=== PATIENT | female | born 1975 | race American Indian/Alaskan Native ===

== ENCOUNTER 2017-03-26 03:18 | Emergency (ER) | payer MEDICAID ==
--- NOTE | 2017-03-26 03:28 | EDPHY ---
H & P HPI/ROS: HPI CHIEF COMPLAINT: Alcohol intoxication, fall off skateboard, facial trauma HISTORY OF PRESENT ILLNESS: The patient 41-year-old female she denies having significant medical history she presents emergency room by EMS in a cervical collar she is alert and orient x4, GCS 15, she presents after she fell off her skateboard she got intoxicated with multiple liquor beverages this evening she fell off a skateboard landing on her face. She has a chin laceration and states that she has anterior facial pain. No neck pain no headache. Of note upon arrival to the emergency room smells of alcohol she is slurring her speech she is intoxicated. Past Medical History: Denies any medical history Past Surgical History: Denies any surgical history Social History: Occasional alcohol use, smokes marijuana and tobacco denies illicit drugs Family History: Noncontributory ROS REVIEW OF SYSTEMS: A comprehensive 10 point review of systems is otherwise negative aside from elements mentioned in the history of present illness. Exam Constitutional intoxicated, smells of alcohol triage nursing summary reviewed, vital signs reviewed, awake/alert. Eyes normal conjunctivae and sclera, EOMI, PERRLA. HENT head/neck/face: There is a horizontally oriented 4 cm chin laceration present, midface stable, no crepitus, however tender palpation over the both maxillary region, no malocclusion with bite however patient claims that some of her teeth are missing however on oropharynx exam there is no blood in her mouth and she has bad dentition with multiple fractured teeth, unclear which is acute or old, moist mucus membranes, no epistaxis, neck supple/ no meningismus, no raccoon eyes. Respiratory clear to auscultation bilaterally, normal breath sounds, no respiratory distress, no wheezing. Cardiovascular rate normal, regular rhythm, no murmur, no edema, distal pulses normal. Gastrointestinal soft, non-tender, no rebound, no guarding, normal bowel sounds, no distension, no pulsatile mass. Genitourinary no CVA tenderness. Musculoskeletal no midline vertebral tenderness, full range of motion, no calf swelling, no tenderness of extremities, no meningismus, good pulses, neurovascularly intact. Skin pink, warm, & dry, no rash, skin atraumatic. Neurologic awake, alert and oriented x 3, AAOx3, moves all 4 extremities equally, motor intact, sensory intact, CN II-XII intact, normal cerebellar, normal vision, slurring her speech consistent with alcohol intoxication Psychiatric normal mood/affect. Heme/Lymph/Immune no lymphadenopathy. Differential Diagnosis: Includes but is not limited to in a particular order: Acute alcohol intoxication, , facial trauma, facial fracture, closed head injury , intracranial bleed, cervical spine injury Medical Decision Making: Plan for this patient alcohol blood draw, CT of the head for trauma CT of the cervical spine for trauma, CT of the face for trauma Re-evaluation: CT scan of the head without IV contrast The results of the study are negative for acute traumatic injury The study was read by Dr. Rice I viewed the images myself on the PACS system. CT scan of the cervical spine without IV contrast for trauma. The results of the study are negative for acute traumatic injury The study was read by Dr. rice. [I viewed the images myself on the PACS system. CT scan of the maxillofacial. The results of the study are bilateral mandibular condyle fractures The study was read by Dr. rice. I viewed the images myself on the PACS system. ED x-ray chest one view: Negative for acute cardiopulmonary disease specifically no visible trauma or foreign body seen. 0447AM: Patient is sleeping at this time. She removed her cervical collar herself. Chin laceration needs to be repaired. She also has bilateral mandibular condyle fractures that I need to consult oral maxillofacial surgery. 0538AM: Laceration Repair Procedure: Verbal Consent was obtained, Under sterile conditions, The patient had lidocaine with epinephrine used approximately 5ccs to local anesthetize the 4cm chin Laceration. The wound was copiously irrigated with sterile fluid, the wound was explored for foreign bodies there were none visualized, the wound was explored with a sterile glove to the base. There are no deep structures involved, including no arterial injury. Three 5.0 Prolene interrupted Sutures were placed in this patient's laceration. She had good close approximation of the wound edges. She Tolerated this well. 0557AM: Patient is sleeping here resting comfortably. Her chin laceration has been repaired by myself under sterile condition she tolerated this well. Her CT scans and x-rays have been reviewed. Her CT scan shows bilateral mandibular condyle fractures. Will touch base with oral maxillofacial surgery for further management of this. 0709: Spoke with Dr. Londono with [facility]. He has accepted patient to Er. 0709: Spoke With Dr. Aguirre, who has accepted this patient to [facility]. I did update this patient about this at 7:30 a.m.. She is agreeable for transfer. Emtala form filled out. Reason for transfer bilateral mandibular condyle fractures. Reason this patient be transferred is bilateral mandibular condyle fractures and at this time I do not have oral maxillofacial surgery available for this patient. The patient has no other traumatic injuries except a chin laceration. I do not feel that she needs Trauma Service consult here in the emergency room should be transferred to [facility] where oral maxillofacial surgery has agreed to see her in the ER. Transfer ER to ER. Source: Patient, EMS - Personal History Tetanus Vaccine Date: 2012 - Medical/Surgical History Hx Asthma: No Hx Chronic Respiratory Disease: No Hx Diabetes: No Hx Cardiac Disease: No Hx Renal Disease: No Hx Cirrhosis: No Hx Alcoholism: Yes Hx HIV/AIDS: No Hx Splenectomy or Spleen Trauma: No Other PMH: kidney infections, staph infections, ETOH ABUSE. , drug abuse, Hep C - Social History Smoking Status: Current every day smoker Constitutional: Initial Vital Signs Temperature (C) 36.9 C 03/26/17 03:32 Heart Rate 82 03/26/17 03:32 Respiratory Rate 18 03/26/17 03:32 Blood Pressure 138/89 H 03/26/17 03:32 O2 Sat (%) 100 03/26/17 03:32 O2 Delivery Mode Room Air Allergies/Adverse Reactions: procaine HCl [From Novocain] Allergy (Verified 03/26/17 03:33) Home Medications: Medication Instructions Recorded NK [No Known Home Meds] 03/26/17 Medical Decision Making - Data Points Laboratory Results: Laboratory Results 03/26/17 03:30 03/26/17 03:30 03/26/17 03/26/17 03:30 03:30 WBC 7.36 10^3/uL 10^3/uL (3.80-9.50) RBC 4.35 10^6/uL 10^6/uL (4.18-5.33) Hgb 12.2 g/dL L g/dL (12.6-16.3) Hct 38.3 % % (38.0-47.0) MCV 88.0 fL fL (81.5-99.8) MCH 28.0 pg pg (27.9-34.1) MCHC 31.9 g/dL L g/dL (32.4-36.7) RDW 18.2 % H % (11.5-15.2) Plt Count 523 10^3/uL H 10^3/uL (150-400) MPV 9.1 fL fL (8.7-11.7) Neut % (Auto) 55.5 % % (39.3-74.2) Lymph % (Auto) 31.8 % % (15.0-45.0) [place] % (Auto) 9.8 % % (4.5-13.0) Eos % (Auto) 1.4 % % (0.6-7.6) Baso % (Auto) 1.4 % % (0.3-1.7) Nucleat RBC Rel Count 0.0 % % (0.0-0.2) Absolute Neuts (auto) 4.09 10^3/uL 10^3/uL (1.70-6.50) Absolute Lymphs (auto) 2.34 10^3/uL 10^3/uL (1.00-3.00) Absolute Monos (auto) 0.72 10^3/uL 10^3/uL (0.30-0.80) Absolute Eos (auto) 0.10 10^3/uL 10^3/uL (0.03-0.40) Absolute Basos (auto) 0.10 10^3/uL 10^3/uL (0.02-0.10) Absolute Nucleated RBC 0.00 10^3/uL 10^3/uL (0-0.01) Immature Gran % 0.1 % % (0.0-1.1) Immature Gran # 0.01 10^3/uL 10^3/uL (0.00-0.10) Sodium 145 mEq/L H mEq/L (134-144) Potassium 4.4 mEq/L mEq/L (3.5-5.2) Chloride 109 mEq/L mEq/L (97-110) Carbon Dioxide 24 mEq/l mEq/l (22-31) Anion Gap 12 mEq/L mEq/L (8-16) BUN 12 mg/dL mg/dL (7-23) Creatinine 0.8 mg/dL mg/dL (0.6-1.0) Estimated GFR > 60 Glucose 100 mg/dL mg/dL (70-100) Calcium 9.2 mg/dL mg/dL (8.5-10.4) Ethyl Alcohol 214 mg/dL H mg/dL (0-10) Departure - Departure Disposition: [facility] Clinical Impression: Elevated ETOH level Qualifiers: Blood alcohol level: 200-239 mg/100 ml Qualified Code(s): Y90.7 - Blood alcohol level of 200-239 mg/100 ml Mandibular body fracture Qualifiers: Encounter type: initial encounter Fracture type: closed Laterality: unspecified laterality Qualified Code(s): S02.600A - Fracture of unspecified part of body of mandible, unspecified side, initial encounter for closed fracture Facial laceration Qualifiers: Encounter type: initial encounter Qualified Code(s): S01.81XA - Laceration without foreign body of other part of head, initial encounter Condition: Fair Instructions: Care For Your Stitches (ED), Laceration (ED), Jaw Fracture in Adults (ED), Alcohol Intoxication (ED) Referrals: NONE *PRIMARY CARE P,. [Primary Care Provider] - As per Instructions
[2017-03-26 03:44] LABS: % IMMATURE GRANULYOCYTES 0.1 % (0.0-1.1); ABSOLUTE IMMATURE GRANULOCYTES 0.01 10^3/uL (0.00-0.10); ADD DIFF? NO; ADD MORPH? NO; ADD SCAN? NO; ATYPICAL LYMPHOCYTE FLAG 10 (0-99); FRAGMENT RBC FLAG 10 (0-99); HEMATOCRIT 38.3 % (38.0-47.0); HEMOGLOBIN 12.2 g/dL (12.6-16.3); LEFT SHIFT FLG 0 (0-99); LIPEMIA HEMOLYSIS FLAG 80 (0-99); MEAN CELL HEMOGLOBIN CONCENTR. 31.9 g/dL (32.4-36.7); MEAN PLATELET VOLUME 9.1 fL (8.7-11.7); PLATELET CLUMPS FLAG 0 (0-99); PLATELET COUNT 523 10^3/uL (150-400); RED BLOOD CELL COUNT 4.35 10^6/uL (4.18-5.33); RED CELL DISTRIBUTION WIDTH 18.2 % (11.5-15.2)
[2017-03-26 03:53] LABS: ANION GAP 12 mEq/L (8-16); CALCIUM 9.2 mg/dL (8.5-10.4); CARBON DIOXIDE 24 mEq/l (22-31); CHLORIDE 109 mEq/L (97-110); CREATININE 0.8 mg/dL (0.6-1.0); ETHANOL SERUM 214 mg/dL (0-10); GLOMERULAR FILTRATION RATE > 60; GLUCOSE 100 mg/dL (70-100); POTASSIUM 4.4 mEq/L (3.5-5.2); SODIUM 145 mEq/L (134-144)
[2017-03-26 06:56] VITALS: RESP 16
[2017-03-26] MEDS ORDERED: fentaNYL 100 MCG/2 ML INJ IVP ONE (07:41)
[2017-03-26 07:55] VITALS: BP 122/76; PULSE 65; TEMP 97.9; O2SAT 98
== END 2017-03-26 08:36 | disposition short-term general hospital (02) ==
LOC: EDUNIT#
PROC: 0HQ1XZZ Repair Face Skin, External Approach (ICD-10-PCS; principal; 2017-03-26)
DX: S02.600A Fracture of unspecified part of body of mandible, unspecified side, initial encounter for closed fracture (principal); S01.81XA Laceration without foreign body of other part of head, initial encounter; Y90.7 Blood alcohol level of 200-239 mg/100 ml; F17.200 Nicotine dependence, unspecified, uncomplicated; V00.131A Fall from skateboard, initial encounter; Y99.8 Other external cause status; Y93.51 Activity, roller skating (inline) and skateboarding
CPT/HCPCS: 96374; G0480; J3010

== ENCOUNTER 2017-05-13 20:29 | Emergency (ER) | payer MEDICAID ==
--- NOTE | 2017-05-13 20:38 | EDPHY ---
H & P HPI/ROS: HPI CHIEF COMPLAINT: Alcohol intoxication, medical [facility] HISTORY OF PRESENT ILLNESS: this patient is a 41-year-old female, presents to the emergency room by [facility]. Patient intoxicated. EMS make contact with her after she was yelling at people outside. She is visibly intoxicated. She refused to cooperate with EMS exam getting vitals. So she is brought in handcuffs to the emergency room. Upon arrival here in the emergency room she is yelling. she is intoxicated. However is cooperating with exam. She denies any congestion. Denies trauma. States she drank a large amount of alcohol this evening. She is able to ambulate with a steady gait. Past Medical History: Daily alcohol use Past Surgical History: no recent surgery Social History: homeless, daily alcohol use Family History: noncontributory ROS REVIEW OF SYSTEMS: A comprehensive 10 point review of systems is otherwise negative aside from elements mentioned in the history of present illness. Exam Constitutional intoxicated alcohol triage nursing summary reviewed, vital signs reviewed, awake/alert. Eyes normal conjunctivae and sclera, EOMI, PERRLA. HENT normal inspection, atraumatic, moist mucus membranes, no epistaxis, neck supple/ no meningismus, no raccoon eyes. Respiratory clear to auscultation bilaterally, normal breath sounds, no respiratory distress, no wheezing. Cardiovascular rate normal, regular rhythm, no murmur, no edema, distal pulses normal. Gastrointestinal soft, non-tender, no rebound, no guarding, normal bowel sounds, no distension, no pulsatile mass. Genitourinary no CVA tenderness. Musculoskeletal no midline vertebral tenderness, full range of motion, no calf swelling, no tenderness of extremities, no meningismus, good pulses, neurovascularly intact. Skin pink, warm, & dry, no rash, skin atraumatic. Neurologic awake, alert and oriented x 3, AAOx3, moves all 4 extremities equally, motor intact, sensory intact, CN II-XII intact, normal cerebellar, normal vision, intoxicated with alcohol slurring of the speech however normal gait Psychiatric normal mood/affect. Heme/Lymph/Immune no lymphadenopathy. Differential Diagnosis: includes but is not limited to in a particular order acute alcohol intoxication Medical Decision Making: plan for this patient medical clearance [facility]. patient ambulated throughout the emergency room without any difficulty. No ataxia. Will be discharged with [facility] Source: Patient, Police, EMS - Personal History Tetanus Vaccine Date: 2012 - Medical/Surgical History Hx Asthma: No Hx Chronic Respiratory Disease: No Hx Diabetes: No Hx Cardiac Disease: No Hx Renal Disease: No Hx Cirrhosis: No Hx Alcoholism: Yes Hx HIV/AIDS: No Hx Splenectomy or Spleen Trauma: No Other PMH: kidney infections, staph infections, ETOH ABUSE. , drug abuse, Hep C - Social History Smoking Status: Current every day smoker Allergies/Adverse Reactions: procaine HCl [From Novocain] Allergy (Verified 03/26/17 03:33) Home Medications: Medication Instructions Recorded NK [No Known Home Meds] 03/26/17 Departure - Departure Disposition: Home, Routine, Self-Care Clinical Impression: Alcoholic intoxication Qualifiers: Complication of substance-induced condition: uncomplicated Qualified Code(s): F10.920 - Alcohol use, unspecified with intoxication, uncomplicated Condition: Good Instructions: Alcohol Intoxication (ED) Referrals: Patient,NotPresent [Primary Care Provider] - As per Instructions
[2017-05-13 20:42] VITALS: BP 107/85; PULSE 92; RESP 16; TEMP 97.9; O2SAT 98
[2017-05-14] MEDS ORDERED: CHLORDIAZEPOXIDE 25MG PREPK#6 BTL TAKEHOME ONE ×2 (02:36→02:40)
== END 2017-05-13 20:42 | disposition home or self-care (01) ==
LOC: EDUNIT#
DX: F10.920 Alcohol use, unspecified with intoxication, uncomplicated (principal); F17.200 Nicotine dependence, unspecified, uncomplicated

== ENCOUNTER 2017-05-25 19:57 | Emergency (ER) | payer MEDICAID ==
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
[2017-05-25] MEDS ORDERED: NS 1,000 ML IV ONE (20:09)
[2017-05-25] MEDS ORDERED: CHLORDIAZEPOXIDE 25MG PREPK#6 BTL TAKEHOME ONE ×2 (20:29→20:31)
[2017-05-25 20:30] LABS: % IMMATURE GRANULYOCYTES 0.4 % (0.0-1.1); ABSOLUTE IMMATURE GRANULOCYTES 0.03 10^3/uL (0.00-0.10); ADD DIFF? NO; ADD MORPH? NO; ADD SCAN? NO; ANION GAP 15 mEq/L (8-16); ATYPICAL LYMPHOCYTE FLAG 10 (0-99); CALCIUM 9.8 mg/dL (8.5-10.4); CARBON DIOXIDE 19 mEq/l (22-31); CHLORIDE 112 mEq/L (97-110); CREATININE 0.8 mg/dL (0.6-1.0); FRAGMENT RBC FLAG 0 (0-99); GLOMERULAR FILTRATION RATE > 60; GLUCOSE 89 mg/dL (70-100); HEMATOCRIT 37.2 % (38.0-47.0); HEMOGLOBIN 12.3 g/dL (12.6-16.3); LEFT SHIFT FLG 0 (0-99); LIPEMIA HEMOLYSIS FLAG 80 (0-99); MEAN CELL HEMOGLOBIN 28.9 pg (27.9-34.1); MEAN CELL HEMOGLOBIN CONCENTR. 33.1 g/dL (32.4-36.7); MEAN CELL VOLUME 87.3 fL (81.5-99.8); MEAN PLATELET VOLUME 8.9 fL (8.7-11.7); PLATELET CLUMPS FLAG 10 (0-99); PLATELET COUNT 440 10^3/uL (150-400); POTASSIUM 4.2 mEq/L (3.5-5.2); RED BLOOD CELL COUNT 4.26 10^6/uL (4.18-5.33); RED CELL DISTRIBUTION WIDTH 16.7 % (11.5-15.2); SODIUM 146 mEq/L (134-144)
[2017-05-25 20:46] LABS: ETHANOL SERUM 439 mg/dL (0-10)
[2017-05-25 20:50] VITALS: BP 111/70; PULSE 91; RESP 14; TEMP 97.9; O2SAT 93
== END 2017-05-25 20:44 | disposition home or self-care (01) ==
LOC: EDUNIT#
DX: F10.120 Alcohol abuse with intoxication, uncomplicated (principal)
CPT/HCPCS: G0480

== ENCOUNTER 2018-02-16 14:13 | Emergency (ER) | payer MEDICAID ==
[2018-02-16] MEDS ORDERED: SKIN ADHESIVE (DERMABOND) 1 EACH TP ONE (14:24)
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
[2018-02-16 16:15] VITALS: BP 131/96
== END 2018-02-16 16:14 | disposition home or self-care (01) ==
LOC: EDUNIT#
PROC: 0HQ1XZZ Repair Face Skin, External Approach (ICD-10-PCS; principal; 2018-02-16)
DX: S09.90XA Unspecified injury of head, initial encounter (principal); S01.81XA Laceration without foreign body of other part of head, initial encounter; F17.200 Nicotine dependence, unspecified, uncomplicated; W01.198A Fall on same level from slipping, tripping and stumbling with subsequent striking against other object, initial encounter

== ENCOUNTER 2018-09-24 15:30 | Emergency (ER) | payer MEDICAID ==
[~2018-09-24 15:30] MED LIST: AZITHROMYCIN 250 MG TAB PO SCH
--- NOTE | 2018-09-24 15:58 | EDPHY ---
H & P Time Seen by Provider: 09/24/18 15:40 HPI/ROS: HPI Cough. 42-year-old female on foot with significant other. Patient reports that she has had a cough, at times productive of a green sputum, for the last week. She also describes having nasal congestion is a and some muscle aches and joint aches. She has a history of alcohol abuse. Last drink was around 1:00 p.m.. She is living on the streets. She denies fever. ROS: Constitutional: As above. No weakness. Eyes: No discharge. No changes in vision. ENT: No sore throat. No nasal congestion or rhinorrhea. Respiratory: As above. No shortness of breath. Cardiac: No chest pain, no palpitations. Gastrointestinal: No abdominal pain, no vomiting, no diarrhea. Genitourinary: No hematuria. No dysuria or increased frequency with urination. Musculoskeletal: No back pain. No neck pain. As above. Skin: No rashes. Neurological: No headache. No focal weakness or altered sensation. Past medical history: Kidney infections, staph infections, alcohol and drug abuse, hepatitis-C. Social history: Living on the streets. Alcohol and drug abuse, here with boyfriend. She is a smoker. Physical Exam: General Appearance: Alert, no distress. This patient is responding to questions appropriately and in full sentences. This patient appears well- hydrated and well-nourished. Eyes: Pupils equal and round no pallor or injection. No lid edema, erythema or injection. ENT, Mouth: Mucous membranes are moist. The pharyngeal tissues are unremarkable. No edema or swelling. No asymmetry suggestive of abscess. No erythema or exudates. No cervical, submandibular, submental lymphadenopathy. Respiratory: There are no retractions, lungs are clear to auscultation with good air movement bilaterally. No tachypnea Cardiovascular: Regular rate and rhythm. No murmur. Neurological: Motor sensory function is grossly intact. Cranial nerves are normal. Gait is normal. Skin: Warm and dry, no rashes. Musculoskeletal: Neck is supple and nontender. No pain on flexion of her neck. Extremities are symmetrical. All joints range without pain or impingement. Psychiatric: No agitation. No depression. Database: EKG: Imaging: Chest x-ray PA and lateral; the cardiac mediastinal silhouette is unremarkable. No evidence of infiltrate or pneumothorax. Mild airway disease suggestive of bronchitis. No acute cardiopulmonary disease process noted. Interpreted by me. Procedures: Emergency department course: Triage vital signs reviewed. She is mildly tachycardic. Triage vital signs are otherwise normal. She is afebrile in the emergency department. She was sent for chest x-ray as above. She was given Tessalon Perle for cough. 4:00 p.m., patient re-evaluated. Results of x-ray discussed with her. Plan will be to treat her with Tessalon Perle for her cough and prescribe her azithromycin for possible early pneumonia. These medicines will be filled by the assistance program. I will have her follow up with [facility] for re- evaluation on Tuesday or Tuesday of this week. She feels comfortable being discharged. Return to emergency department precautions reviewed with her. She understands for follow-up. All of her questions were answered. She was discharged from the emergency department in good condition. Differential Diagnosis: The differential diagnosis on this patient includes but is not limited to bronchitis, early pneumonia. This represents a partial list of diagnoses considered. These considerations are based on history, physical exam, past history, reassessment and diagnostic testing. Smoking Status: Current every day smoker Constitutional: Initial Vital Signs Temperature (C) 37.2 C 09/24/18 15:33 Heart Rate 109 H 09/24/18 15:33 Respiratory Rate 16 09/24/18 15:33 Blood Pressure 132/87 H 09/24/18 15:33 O2 Sat (%) 91 L 09/24/18 15:33 O2 Delivery Mode Room Air Allergies/Adverse Reactions: procaine HCl [From Novocain] Allergy (Verified 09/24/18 15:33) Home Medications: Medication Instructions Recorded Azithromycin [Zithromax] 250 mg PO DAILY #6 tab 09/24/18 Benzonatate [Tessalon Pearles] 100 mg PO TID #12 cap 09/24/18 Departure - Departure Disposition: Home, Routine, Self-Care Clinical Impression: Acute bronchitis Condition: Good Instructions: Acute Bronchitis (ED) Additional Instructions: Read and follow provided instructions. Follow-up with your primary care physician in 1-2 days for re-evaluation. Take medication as prescribed. Return to the emergency department for worsening symptoms or other serious concerns. Referrals: [facility],. [Clinic] - As per Instructions Prescriptions: Azithromycin [Zithromax] 250 mg PO DAILY #6 tab Benzonatate [Tessalon Pearles] 100 mg PO TID #12 cap
[2018-09-24 16:33] VITALS: BP 136/76
== END 2018-09-24 16:32 | disposition home or self-care (01) ==
DX: J20.9 Acute bronchitis, unspecified (principal)

== ENCOUNTER 2018-10-12 15:03 | Emergency (ER) | payer MEDICAID ==
[2018-10-12 15:07] VITALS: BP 125/100
--- NOTE | 2018-10-12 15:30 | EDPHY ---
H & P Time Seen by Provider: 10/12/18 15:19 HPI/ROS: CHIEF COMPLAINT: Right hand laceration HISTORY OF PRESENT ILLNESS: 42-year-old female presents with a right hand laceration. She accidentally cut her hand on a broken beer bottle just prior to arrival. Immediate onset of moderate bleeding, now stopped. Mild pain currently. No numbness or weakness. Tetanus is up-to-date. ROS: No numbness, weakness, excessive bleeding, syncopal episode, other injury. Smoking Status: Current every day smoker Physical Exam: Alert and oriented, pleasant Extremities: Right hand -1 cm laceration on the palm, no active bleeding Neuro: Motor intact to active resistance of the fingers and sensory intact to light touch Vascular: Capillary refill brisk distally Constitutional: Initial Vital Signs Temperature (C) 37 C 10/12/18 15:06 Heart Rate 140 H 10/12/18 15:06 Respiratory Rate 16 10/12/18 15:06 Blood Pressure 125/100 H 10/12/18 15:06 O2 Sat (%) 93 10/12/18 15:06 O2 Delivery Mode Room Air Allergies/Adverse Reactions: procaine HCl [From Novocain] Allergy (Verified 10/12/18 15:05) Medical Decision Making Procedures: Procedure: Laceration repair. The 1 cm laceration on the palm was anesthetized using lidocaine. The wound was irrigated, draped and explored to its base with a gloved finger. There were no deep structures involved. No foreign body palpable. The wound was repaired with 5 0 nylon. The wound repair was simple. Departure - Departure Disposition: Home, Routine, Self-Care Clinical Impression: Laceration of right hand Qualifiers: Encounter type: initial encounter Foreign body presence: without foreign body Qualified Code(s): S61.411A - Laceration without foreign body of right hand, initial encounter Condition: Good Instructions: Laceration (ED) Additional Instructions: Return for suture removal in 10 days. Referrals: [facility],. [Clinic] - As per Instructions
== END 2018-10-12 16:00 | disposition home or self-care (01) ==
PROC: 0HQFXZZ Repair Right Hand Skin, External Approach (ICD-10-PCS; principal; 2018-10-12)
DX: S61.411A Laceration without foreign body of right hand, initial encounter (principal); W25.XXXA Contact with sharp glass, initial encounter; F17.200 Nicotine dependence, unspecified, uncomplicated

== ENCOUNTER 2019-03-13 13:45 | Emergency (ER) | payer MEDICAID ==
[2019-03-13] MEDS: FAMOTIDINE 20 MG/NACL 50 ML IV ONE (14:31)
[2019-03-13] MEDS: ONDANSETRON 4 MG/2 ML VIAL IVP ONE (14:31)
[2019-03-13] MEDS: DIAZEPAM 10 MG/2 ML SYR IVP ONE (14:31)
[2019-03-13] MEDS: NS 1,000 ML IV ONE (14:31)
--- NOTE | 2019-03-13 14:42 | EDPHY ---
H & P Smoking Status: Current some day smoker Time Seen by Provider: 03/13/19 14:06 HPI/ROS: HPI Vomiting, alcohol abuse, cough. 43-year-old female on foot. She is with her friends. Chronic homeless. History of alcohol abuse. Frequent visitor to our emergency department. Presents with complaint of nausea and vomiting for about the last 24 hr. She thinks this is secondary to alcohol withdrawal. She tells me that her last drink was a couple of hours ago. She reports that she drinks at least a pt of hard liquor a day. She also reports that she has had some right-sided flank pain on and off for the last 2 or 3 days and is concerned about a possible urinary tract infection and also reports she has had an ongoing cough for the last 2-3 weeks which she describes as nonproductive. ROS: Constitutional: No fever, no chills. As above. Eyes: No discharge. No changes in vision. ENT: No sore throat. No nasal congestion or rhinorrhea. Respiratory: As above. No shortness of breath. Cardiac: No chest pain, no palpitations. Gastrointestinal: No abdominal pain, no vomiting, no diarrhea. Genitourinary: No hematuria. No dysuria or increased frequency with urination. Musculoskeletal: As above. No neck pain. No myalgias or arthralgias. Skin: No rashes. Neurological: No headache. No focal weakness or altered sensation. Past medical history: Kidney infections, staph skin infections, alcohol abuse, hepatitis-C, drug abuse. Social history: Homeless. Heavy smoker. As above. Here with 2 friends. Physical Exam: General Appearance: Alert, dirty and somewhat disheveled. She is not in distress. This patient is responding to questions appropriately and in full sentences. This patient appears well-hydrated and well-nourished. Eyes: Pupils equal and round no pallor or injection. No lid edema, erythema or injection. Respiratory: There are no retractions, lungs are clear to auscultation with good air movement bilaterally. No tachypnea. Cardiovascular: Regular rate and rhythm. No murmur. Gastrointestinal: Abdomen is soft and nontender on palpation throughout her abdomen, no masses, bowel sounds normal. No focal tenderness at McBurney's point. No Starkey sign. Neurological: Motor sensory function is grossly intact. Cranial nerves are normal. Gait is normal. She is mildly tremulous. Skin: Warm and dry, no rashes. Musculoskeletal: No CVA tenderness bilaterally. Extremities are symmetrical. All joints range without pain or impingement. Psychiatric: No agitation. No depression. Database: EKG: Imaging: Chest x-ray PA and lateral: The cardiac mediastinal silhouette is unremarkable. No evidence of infiltrate or pneumothorax. No acute cardiopulmonary disease process. Interpreted by me. Procedures: Emergency department course: Triage vital signs reviewed. Afebrile. Mildly tachycardic at 110. Triage vital signs are otherwise unremarkable. IV was placed. She was started on IV normal saline with 1-2 L to be given over the next 1-2 hours. She will initially be given 20 mg of IV Pepcid, 4 mg of IV Zofran and 5 mg of IV Valium. 2:40 p.m., the patient was re-evaluated, resting comfortably at this time. She is being taken for chest x-ray. conveyor monitor shows a heart rate currently of 92. Blood pressure is currently 149/112. Urinalysis results pending. 3:00 p.m., care turned over to Dr. Toma Nava. Urinalysis is unremarkable. Plan will be for p.o. challenge and discharge if appropriate. Differential Diagnosis: The differential diagnosis on this patient includes but is not limited to alcohol withdrawal, food-borne illness, alcoholic gastritis, urinary tract infection. Pneumonia, pancreatitis, cholecystitis, bowel obstruction, appendicitis unlikely. This represents a partial list of diagnoses considered. These considerations are based on history, physical exam, past history, reassessment and diagnostic testing. (Pan Markham) Constitutional: Initial Vital Signs Temperature (C) 37.5 C 03/13/19 13:58 Heart Rate 110 H 03/13/19 13:58 Respiratory Rate 18 03/13/19 13:58 Blood Pressure 113/79 03/13/19 13:58 O2 Sat (%) 94 03/13/19 13:58 O2 Delivery Mode Room Air Allergies/Adverse Reactions: procaine HCl [From Novocain] Allergy (Verified 03/13/19 14:02) Home Medications: Medication Instructions Recorded Promethazine HCl [Phenergan 12.5mg 12.5 mg PO Q8 PRN #12 tablet 03/13/19 tab] Medical Decision Making ED Course/Re-evaluation: I assumed care of this patient at 3:[address] Markham. At this time we are awaiting the results of a p.o. Challenge. Patient was evaluated by myself at 3:45 a.m.. She has been drinking fluids and eating Major crackers with no further vomiting. She does however complain of severe epigastric and periumbilical discomfort. States that pain is been present for several weeks. She does have a long history of alcohol abuse. Pain is worse with food. Patient received a GI cocktail. Labs including LFT and lipase were ordered for further evaluation Slight elevation in the patient's lipase, liver function tests are normal, alcohol level at the time of admission was 149. Patient was discharged with instructions regarding mild pancreatitis, nausea vomiting, alcoholic gastritis, and was given a prescription of Phenergan to use as needed for ongoing nausea. (Toma Nava) - Data Points Laboratory Results: Laboratory Results 03/13/19 14:10 03/13/19 14:10 Medications Given: Discontinued Medications Al Hydroxide/Mg Hydroxide (Maalox Susp) 30 ml PO ONCE ONE Stop: 03/13/19 15:53 Last Admin: 03/13/19 15:56 Dose: 30 ml Diazepam (Valium) 5 mg IVP EDNOW ONE Stop: 03/13/19 14:18 Last Admin: 03/13/19 14:31 Dose: 5 mg Hyoscyamine Sulfate (Levsin, Hyomax-Sl) 0.25 mg PO ONCE ONE Stop: 03/13/19 15:53 Last Admin: 03/13/19 15:56 Dose: 0.25 mg Sodium Chloride (Ns) 1,000 mls @ 0 mls/hr IV EDNOW ONE; Wide Open PRN Reason: Protocol Stop: 03/13/19 14:18 Last Admin: 03/13/19 14:31 Dose: 1,000 mls Famotidine/Sodium Chloride (Pepcid 20 Mg (Premix)) 50 mls @ 200 mls/hr IV EDNOW ONE Stop: 03/13/19 14:31 Last Admin: 03/13/19 14:31 Dose: 50 mls Lidocaine (Lidocaine 2% Viscous) 15 ml PO ONCE ONE Stop: 03/13/19 15:53 Last Admin: 03/13/19 15:57 Dose: 15 ml Ondansetron HCl (Zofran) 4 mg IVP EDNOW ONE Stop: 03/13/19 14:18 Last Admin: 03/13/19 14:31 Dose: 4 mg Departure - Departure Disposition: Home, Routine, Self-Care Clinical Impression: Alcohol abuse Vomiting Qualifiers: Vomiting type: unspecified Vomiting Intractability: non-intractable Nausea presence: with nausea Qualified Code(s): R11.2 - Nausea with vomiting, unspecified Pancreatitis Qualifiers: Chronicity: acute Pancreatitis type: alcohol induced Acute pancreatitis complication: no infection or necrosis Qualified Code(s): K85.20 - Alcohol induced acute pancreatitis without necrosis or infection Instructions: Pancreatitis (ED), Abuse of Alcohol (ED), Acute Nausea and Vomiting (ED) Additional Instructions: Read and follow provided instructions. Stop drinking alcohol in excessive quantities. Your abdominal pain, nausea, vomiting may be related to pancreatitis. I recommend a bland diet until your symptoms are improving. For your [abdominal pain], nausea, vomiting, I suggested you start with a bland diet and advance as tolerated. This means start with clear liquids such as water, Gatorade, juice, flat non- caffeinated soda. If you tolerate clear liquids, then you may add bland foods such as bananas, rice, or toast. If you do not have any worsening of your symptoms, you may begin to resume a regular diet. You been given a prescription for Phenergan. Please use this as needed for ongoing nausea vomiting. Follow-up with your primary care physician in 1-2 days for re-evaluation. Return to the emergency department for worsening symptoms or other serious concerns. Referrals: Frannie Lux MD [Primary Care Provider] - As per Instructions Prescriptions: Promethazine HCl [Phenergan 12.5mg tab] 12.5 mg PO Q8 PRN #12 tablet PRN Reason: nausea
[2019-03-13] MEDS: MAG HYDROX/AL HYDROX/SIMETH 30 ML UDCUP PO ONE (15:56)
[2019-03-13] MEDS: HYOSCYAMINE SULFATE 0.125 MG TAB PO ONE (15:56)
[2019-03-13] MEDS: LIDOCAINE 2% VISCOUS 15 ML UDCUP PO ONE (15:57)
[2019-03-13 15:59] LABS: PLATELET COUNT 461 10^3/uL (150-400)
[2019-03-13 16:32] VITALS: BP 119/74
== END 2019-03-13 16:32 | disposition home or self-care (01) ==
DX: R11.2 Nausea with vomiting, unspecified (principal); K85.20 Alcohol induced acute pancreatitis without necrosis or infection; Z59.0 Homelessness; F17.200 Nicotine dependence, unspecified, uncomplicated; Y90.6 Blood alcohol level of 120-199 mg/100 ml
CPT/HCPCS: 96374; G0480; J2405; J3360

== ENCOUNTER 2019-04-02 14:37 | Emergency (ER) | payer OTHER, MEDICAID | END 2019-04-02 16:48 | disposition home or self-care (01) ==